=== PATIENT | female | born 1965 | race Caucasian/White ===

== ENCOUNTER → 2017-06-28 | Outpatient (CLI) | payer OTHER ==
[~2017-06-28] MED LIST: AMITRIPTYLINE H25 M2 PO; ASPIR 8181 MG PO; CYMBALTA60 MG PO; DICLOFENAC SODI75 MG PO; DICLOFENAC SODI75 MG TOP; FLEXERIL PO; FLONASE 0.05%50 MCG NASAL; HYDROCODONE-AP1 EAC6 PO; IMITREX 25 MG T25 M1 PO; LEGATRIN PM PO; LISINOPRIL20 MG PO; LYRICA 75 MG CA75 MG PO; PROAIR HFA8.5 GM INH; SINGULAIR 10 MG10 M1 PO; TOPAMAX 100 MG100 MG PO; TROSPIUM CHLORI60 MG PO; TYLENOL PM EX-1 EACH PO; TYLOPHEN500 MG PO; VOLTAREN GEL 1100 G2 TOP; ZOCOR40 MG PO
--- NOTE | 2017-07-11 15:40 | PAINCON ---
[address] [address] PAIN MANAGEMENT CONSULTATION Name: ALTHEA DEAN Room: [facility].#: [id number] Admission: 06/28/17 Attend Phys: Gage Tyler MD Discharge: Date of : 65 Report #: [id number] THIS REPORT FOR: //name// CC: Vladislav Guerin DATE OF SERVICE: 06/28/2017 CHIEF COMPLAINT: Chronic back pain and migraines. HISTORY OF PRESENT ILLNESS: The patient is a 51-year-old female who has been referred to the Pain Clinic for evaluation. She has a history of lumbosacral radiculopathy as well as lumbar spondylosis. She states that she has had back pain most of her life even at about age 9. She describes the pain as continuous, steady, constant, burning, aching, and sharp. She rates it as an 8/10 when asked to put description of pain in her words. She cannot remember how it feels to be out of pain. Describes it as a constant condition. Pain is worse when she is standing, walking, lifting, sitting, lying down. She is not sure of anything that makes it better that she has found. She has gone to physical therapy. She does have some problems with sleep. She does use a CPAP machine. She has been off work for about a year and half. 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 Also, has some numbness between her shoulders and mid back area. Injections have been done in the past. She states that they have not provided a significantly prolonged period of benefit. She feels that there are some arthritic changes in her neck such that when she turns her head from side to side, there is a grinding sensation. She has been told that she has some immunological problem, but is not exactly sure what the cause is. She has had an elevated MIL[place]. She has not felt to be suffering from lupus and has been treated for fibromyalgia. Used to be somewhat active with swimming as well as biking and walking. She is not as effective at this juncture. She has had a right knee replacement. Has some pain in her left knee. Has been using a cane. Feels that the left knee may have worsened secondary to more dependence on it given the surgery on the right knee. ALLERGIES: No known drug allergies. CURRENT MEDICATIONS: Albuterol ProAir 1-2 puffs q.4-6h., aspirin 81 mg, cyclobenzaprine 10 mg b.i.d., Voltaren 75 mg topical, Cymbalta 60 mg capsules, Flonase nasal spray 0.05%, lisinopril 20 mg, Singulair 10 mg, simvastatin 40 mg, Imitrex 25 mg as directed, and Topamax 100 mg b.i.d. for migraine. MEDICATIONS: No longer use. Lyrica in the past caused some forgetfulness. PAST MEDICAL HISTORY: Anemia, asthma, hypertension, heart disease, [place] [address] PAIN MANAGEMENT CONSULTATION Name: ALTHEA DEAN Room: [facility]#: [id number] Admission: 06/28/17 Attend Phys: Gage Tyler MD Discharge: Date of : 65 Report #: [id number] disease/arthritis. PAST SURGICAL HISTORY: Knee replacement on the right, kidney stones removed, and injections in the back with lidocaine. SOCIAL HISTORY: She worked with disabled individuals. She has been off work for about a year and a half. REVIEW OF SYSTEMS: GENERAL: Questionnaire in the chart significantly positive in the areas of general symptoms. Good health changes in weight. Wears glasses. EARS, NOSE, AND THROAT: Hearing loss/ringing in the ears, chronic sinus problems. CARDIOVASCULAR: Palpitations. RESPIRATORY: Frequent cough, asthma/wheezing. GASTROINTESTINAL: Change in bowel movements. GENITOURINARY: Frequent urination. Awakes to urinate at night, incontinence, and kidney stones. ENDOCRINE: Excessive thirst/hot cold intolerance. MUSCULOSKELETAL: Joint pain, joint stiffness, weakness of the muscles, back pain, and difficulty walking. INTEGUMENTARY: Rash, varicose veins, breast pain. NEUROLOGIC: Frequent recurring headaches, lightheadedness, numbness, and tingling. PSYCHIATRIC: Depression. HEMATOLOGIC: Bleeding tendencies and anemia. RADIOGRAPHIC DATA: 1. MRI of the lumbar spine without contrast. Comparison is made in radiographs of the lumbar spine dated 08/27/2015. There is conventional anatomy with 5 [id number] lumbar type vertebral bodies. There is redemonstration of chronic bilateral pars defect at L5 with resultant grade 1 anterolisthesis L5-S1. Vertebral bodies are normal in height without evidence of compression fractures. Marrow signals intensity is normal. There is moderate to marked degenerative disk disease at L5-S1. The conus medullaris terminates at the L1 and distal spinal cord signal intensity is normal. 2. T11-T12. There is a small left paracentral disk extrusion which results in mild spinal canal stenosis. There is no neural foraminal stenosis. 3. T12-L1. There is no disk protrusion. 4. L1-L2. No significant spinal canal stenosis. 5. L2-L3. There is no significant spinal canal or neural foraminal stenosis. 6. L3-L4. There is no significant spinal canal neural foraminal stenosis. 7. L4-L5. No significant stenosis or foraminal stenosis. 8. L5-S1. There is grade 1 anterolisthesis with unroofing of the intervertebral disk and a small diffuse bulge. The anterolisthesis results is marked, bilateral neural foraminal stenosis. There [place] [address] PAIN MANAGEMENT CONSULTATION Name: ALTHEA DEAN Room: [facility]#: [id number] Admission: 06/28/17 Attend Phys: Gage Tyler MD Discharge: Date of : 65 Report #: [id number] canal stenosis. 9. 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 This may result in unilateral bilateral L5 radiculopathy. 10. Small left paracentral disk extrusion at T11-T12 resulting mild spinal canal stenosis. 11. 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 12. Lumbosacral radiculopathy at L5. PHYSICAL EXAMINATION: GENERAL: The patient is a well-developed and well-nourished female. Appears her appropriate age. She is alert and oriented x 3. Her affect appears appropriate. HEENT: Normocephalic, atraumatic. Extraocular eye muscles intact. NECK: Without adenopathy. HEART: Regular rate. ABDOMEN: Nontender. EXTREMITIES: Upper extremity muscle strength is judged to be 5/5 for the major muscle groups in the upper extremity. Lower extremities, the patient has a well-healed scar on the right knee. HEENT: Nontraumatic. Extraocular eye muscles intact. Conjunctivae normal. Hearing is within normal limits. CARDIOVASCULAR: Normal rate and rhythm. MUSCULOSKELETAL: The patient complains of some pain and discomfort in the lower portion of her back. In the lower extremities, complains of pain of pins and needles as well as some stabbing discomfort in the mid upper shoulder area in the area of the trapezius as well as the midline of the spine and with pain radiating down into the left paraspinous muscle areas at L4-L5 on the right. Also complains of some discomfort and pain with burning involving her right elbow as well as some pins and needle sensation down into her hands bilaterally. Notes pins and needle sensation in the dorsum of her feet bilaterally. IMPRESSION: 1. Chronic pain somewhat global in the low back and down into the legs. 2. History of renal stones, asthma, migraines, depression, history of esophageal stricture, essential hypertension, generalized osteoarthritis in neck, right knee area, and left knee, sleep apnea, and history of spondylogenic compression of the lumbar spine. RECOMMENDATIONS: The patient states that she has had a long life history of chronic pain. Sometimes this can be quite problematic to elucidate the reasoning for pain. She states that she had back pain since she was 9 years old. Has had some problem with arthritis. Has had some problems with esophageal stricture, migraine headaches. At this juncture, we have discussed possible options. She has not tried amitriptyline. [place] [address] PAIN MANAGEMENT CONSULTATION Name: ALTHEA DEAN Room: [facility] Lj#: [id number] Admission: 06/28/17 Attend Phys: Gage Tyler MD Discharge: Date of : 65 Report #: [id number] oftentimes helpful with patients who have chronic pain. Does have migraine headaches. Does have some pain and shooting pains in the lower portion of her legs. This medication can be helpful with neurogenic pain. RECOMMENDATION: We will start her on Elavil 25 mg at bedtime and increase as tolerated. The patient will follow up in the near future and we will continue to try to establish and improve program to help with her chronic pain condition. <ELECTRONICALLY SIGNED> By: Gage Tyler MD 07/11/17 [id number] [id number]. Zbigniew Tyler MD /meggan
== END ==
LOC: M.PC 01:18
DX: G43.909 Migraine, unspecified, not intractable, without status migrainosus (principal); M54.5 Low back pain; G89.29 Other chronic pain; I10 Essential (primary) hypertension; G47.30 Sleep apnea, unspecified

== ENCOUNTER → 2017-07-26 | Outpatient (CLI) | payer OTHER ==
--- NOTE | 2017-08-01 08:18 | PAINCON ---
[address] [address] PAIN MANAGEMENT CONSULTATION Name: ALTHEA DEAN Room: [facility].#: [id number] Admission: 07/26/17 Attend Phys: Gage Tyler MD Discharge: Date of : 65 Report #: [id number] THIS REPORT FOR: //name// CC: Vladislav Tyler DATE OF SERVICE: 07/26/2017 CHIEF COMPLAINT: Chronic back pain. FOLLOWUP HISTORY: The patient is a 51-year-old female, who has been evaluated in the pain clinic because of chronic pain involving the lumbosacral area with radiculopathy. She has had back pain most of her life. She states that it started at age 9. Pain is continuing to be continuous, steady, constant, burning and aching. Notes some sharp pain as well. Rates her pain as a, 8-1/2 to 9. Overall, she finds that things have improved somewhat with use of amitriptyline. Taking this medication at night, has provided greater sleep. She is able to sleep and with less awakening. She is not having any problems with being hung over when she wakes up. Continues to have some low back pain as well as some generalized pain. Does have bilateral knee pain, which has been problematic for years as well. Finds that her pain is most problematic in the morning. States that she is trying to exercise more regularly. ALLERGIES: No known drug allergies. CURRENT MEDICATIONS: Albuterol, ProAir 1-2 puffs every 4-6 hours, aspirin 81 mg, cyclobenzaprine 10 mg b.i.d., Voltaren 75 mg topical, Cymbalta 60 mg capsules, Flonase spray 0.05%, lisinopril 20 mg, Singulair 10 mg, simvastatin 40 mg, Imitrex 25 mg as directed, Topamax 100 mg b.i.d. for migraines. PAIN CLINIC ASSESSMENT: 1. History of osteoarthritis with knee pain, knee joint problems as well as back problems. 2. Height 5 feet 4 inches, weight 218 pounds, BMI is 37.4. 3. VITAL SIGNS: Blood pressure 140/70, heart rate 90, respiratory rate 16, room air saturation 94%, temperature 98.1. Pain score 8-9/10. The weather has made things quite problematic. 4. Chronic history of back pain since age 9 years old. 5. Fall risk. The patient has not fallen since we saw her last. 6. Blood thinner. The patient is not on a blood thinner. 7. Hypertension. The patient is being treated for hypertension. 8. Opioid therapy greater than 6 weeks. The patient is not on chronic opioid therapy. 9. Functional assessment tool. 10. Recreational drug use. [place]ies [place] [address] PAIN MANAGEMENT CONSULTATION Name: JERMAINEALTHEA [facility]: [facility]#: [id number] Admission: 07/26/17 Attend Phys: Gage Tyler MD Discharge: Date of : 65 Report #: [id number] 11. Tobacco: The patient denies use of tobacco. 12. Alcohol. The patient drinks alcoholic beverages only infrequently. PHYSICAL EXAMINATION: GENERAL: The patient is a well-developed white female, appears her stated age. She is alert and oriented x 3. Her affect is appropriate. HEENT: Normocephalic, atraumatic. Extraocular eye muscles intact. Sclerae nonicteric. Hearing is within normal limits. Mucous membranes are moist. NECK: Without adenopathy. HEART: Regular rate. S1, S2. ABDOMEN: Nontender, slightly protuberant. EXTREMITIES: The patient complains of muscular pain and discomfort in the major muscle groups of the upper extremity. Lower extremities, the patient has a well-healed scar in the right knee area. MUSCULOSKELETAL: Without significant scoliosis, kyphosis or lordosis. Complains of some pins and needle sensation in the trapezius area, in the midline area and pain radiating down to the lower portion of her back in the left paraspinous muscle area at about L4-L5 on the right. Some discomfort in the elbows as well. The pins and needle sensation in her hands bilaterally. IMPRESSION: 1. Chronic pain, which is somewhat of a global in nature. 2. History of renal stones. 3. Asthma. 4. Migraines. 5. Depression. 6. History of esophageal stricture. 7. History of essential hypertension. 8. Generalized osteoarthritis in the neck. 9. Osteoarthritis, right knee and left knee. 10. Sleep apnea. 11. History of spondylogenic compression of the lumbar spine. RECOMMENDATIONS: We discussed treatment options with the patient. At this juncture, we will continue with her Elavil. She feels that that medication has been beneficial. She is not feeling hung over. I think to increase the elavil from 25 to 50 mg at bedtime would be reasonable. We will have her take 2 tablets at bedtime. Hopefully, she does not find that they are problematic and we will continue to have more benefit from its pain relieving aspects. We have also given the patient's medication to take for a trial from migraine headache columba/diclofenac. [address] [place] [address] PAIN MANAGEMENT CONSULTATION Name: ALTHEA DEAN Room: [facility]#: [id number] Admission: 07/26/17 Attend Phys: Gage Tyler MD Discharge: Date of : 65 Report #: [id number] She will call us if she has any problems with either of the medications. <ELECTRONICALLY SIGNED> By: Gage Tyler MD 08/01/17817 [id number]. Zbigniew Tyler MD /nt
== END ==
LOC: M.PC 01:56
DX: M54.9 Dorsalgia, unspecified (principal); G89.29 Other chronic pain; J45.909 Unspecified asthma, uncomplicated; G43.909 Migraine, unspecified, not intractable, without status migrainosus; F32.9 Major depressive disorder, single episode, unspecified; M17.0 Bilateral primary osteoarthritis of knee; G47.30 Sleep apnea, unspecified; M47.892 Other spondylosis, cervical region; Z87.442 Personal history of urinary calculi

== ENCOUNTER 2020-11-05 15:47 | Emergency (ER) | payer OTHER ==
[~2020-11-05] VITALS: Ht 162.6 cm; Wt 102.5 kg
[2020-11-05 15:53] VITALS: BP 178/89
[2020-11-05] MEDS ORDERED: CELEBREX50 MG PO (15:55)
[2020-11-05] MEDS ORDERED: IBUPROFEN 800800 MG PO (16:02)
[2020-11-05] MEDS ORDERED: FLEXERIL PO (16:02)
== END 2020-11-05 16:13 | disposition home or self-care (01) ==
LOC: M.ERS 15:47
DX: S43.492A Other sprain of left shoulder joint, initial encounter (principal); G43.909 Migraine, unspecified, not intractable, without status migrainosus; J45.909 Unspecified asthma, uncomplicated; I10 Essential (primary) hypertension; E78.5 Hyperlipidemia, unspecified; M79.7 Fibromyalgia; G25.81 Restless legs syndrome; Z96.651 Presence of right artificial knee joint; Z88.8 Allergy status to other drugs, medicaments and biological substances; Z87.442 Personal history of urinary calculi; V49.49XA Driver injured in collision with other motor vehicles in traffic accident, initial encounter; Y93.89 Activity, other specified; Y92.89 Other specified places as the place of occurrence of the external cause; Y99.8 Other external cause status